=== PATIENT | male | born 1955 | race African-American/Black ===

== ENCOUNTER 2016-10-28 07:03 | Emergency (ER) | payer OTHER ==
[~2016-10-28] VITALS: Ht 185.4 cm; Wt 91.6 kg
[~2016-10-28 07:03] MED LIST: ACETAMINOPHEN-1 EAC1 ORAL; ACYCLOVIR800 MG ORAL; BACTRIM-DS1 EA PO; CEPHALEXIN500 MG PO; GABAPENTIN300 MG ORAL
--- NOTE | 2016-10-28 07:23 | Emergency Room Report ---
History of Present Illness General Chief Complaint: Neck Pain Source: Patient Present Illness HPI Patient presents with complaints of pain to the right mid neck area sharp shooting pain into the trapezius And into the right shoulder Patient has pain with movement Denies any fall or trauma denies any weakness in the arm Denies any headache Denies any chest pain or shortness of breath Pain is 6/10 He states that when he turns his head the pain worsens while trying to take off his jacket patient was grimacing Allergies: Coded Allergies: No Known Allergies (Unverified , 06/20/12) Patient History Past Medical History: see triage record Pertinent Family History: none Reviewed Nursing Documentation: PMH: Agreed, PSxH: Agreed Nursing Documentation-PMH Hx Hypertension: Yes Hx Neurological Problems: Yes - back surgery 02/2015 Review of Systems All Other Systems: negative except mentioned in HPI Physical Exam Vital Signs Date Time Temp Pulse Resp B/P Pulse Ox O2 Delivery O2 Flow Rate FiO2 10/28/16 07:06 98.4 78 16 159/94 97 Sp02 EP Interpretation: reviewed, normal General Appearance: well appearing, no apparent distress Head: normocephalic, atraumatic Eyes: bilateral eye EOMI, bilateral eye PERRL ENT: hearing grossly normal, normal pharynx, TMs + canals normal, uvula midline Neck: supple, no meningismus, no bony tend - Patient however has increased discomfort paraspinal C3-4-5 on the right side, tender on palpation, also tender on palpation of the trapezius Respiratory: lungs clear, normal breath sounds, no rhonchi, no respiratory distress, no retraction, no accessory muscle use Cardiovascular #1: normal peripheral pulses, regular rate, rhythm, no edema, no gallop, no JVD, no murmur Gastrointestinal: normal bowel sounds, non tender, soft, no mass, no organomegaly, non-distended, no guarding, no hernia, no pulsatile mass, no rebound Genitourinary: no CVA tenderness Musculoskeletal: normal inspection - Equal court commissioner bilaterally, no sensory deficit Neurologic: oriented x3, responsive, health promotion officer III-XII nml as tested, motor strength/ tone normal, sensory intact Psychiatric: mood/affect normal Skin: normal color, no rash, warm/dry, palpation normal Lymphatic: normal inspection, no adenopathy Medical Decision Making Diagnostic Impression: Primary Impression: Radiculopathy Additional Impression: Neck pain ER Course Patient's history and exam are in line with what appears to be clinically in line with radiculopathy Multiple differentials including but not limited to cardiac, neurological neurosurgical pathology were also entertained onset of symptoms has been over the past 7 days We did obtain initial x-rays Patient will require further outpatient evaluation and MRI for further input and diagnosis Patient was also provided a soft collar for symptomatic improvement At this time also provided with anti-inflammatories and will have close followup , Other X-Ray Diagnostic Results Other X-Ray Diagnostic Results : EP Interpretation: Yes Findings: no fractures, no dislocation, no soft tissue swelling, other - Osteophytic, arthritic changes Number of Views: 3 - C-spine Last Vital Signs Date Time Temp Pulse Resp B/P Pulse Ox O2 Delivery O2 Flow Rate FiO2 10/28/16 07:06 98.4 78 16 159/94 97 Status: improved Disposition: HOME, SELF-CARE Condition: Improved Scripts Hydrocodone Bit/Acetaminophen 5-325* (NORCO 5-325*) 1 Each Tablet 1 TAB ORAL Q12HR Y for For Pain, #10 TAB 0 Refills Prov: MARNI HEBERT D.O. 10/28/16 Ibuprofen* (MOTRIN*) 600 Mg Tablet 600 MG ORAL Q8H Y for For Pain, #20 TAB 0 Refills Prov: MARNI HEBERT D.O. 10/28/16 Referrals: NON PHYSICIAN (PCP) Additional Instructions: Patient is provided with the discharge instructions notified to follow up with primary doctor in the next 2-3 days otherwise return to the er with any worsening symptoms. MARNI HEBERT D.O. Oct 28, 2016 07:22
[2016-10-28] MEDS ORDERED: NORCO 5-325 TA1 EACH ORAL (07:26)
[2016-10-28] MEDS ORDERED: IBUPROFEN600 MG ORAL (07:26)
[2016-10-28] MEDS ORDERED: Ketorolac 60mg Inj IM ONE (07:30)
[2016-10-28] MEDS ORDERED: Norco 10mg/325mg tab ORAL ONE (07:30)
[2016-10-28 08:10] VITALS: BP 149/82
--- NOTE | 2016-10-28 10:42 | Diagnostic Imaging Report ---
Indication: PAIN, radiculopathy Technique: 3 views of the cervical spine Comparison: none Findings: Bony alignment is normal. No prevertebral soft tissue swelling. No acute fractures. No dislocations. There is degenerative disc narrowing at C5-6 and C6-7. Vertebral body heights are preserved. Impression: No acute process
== END 2016-10-28 08:10 | disposition home or self-care (01) ==
LOC: EMR 07:18
DX: M54.12 Radiculopathy, cervical region (principal)
CPT/HCPCS: 72040; 96372; 99284

== ENCOUNTER 2017-02-14 21:40 | Emergency (ER) | payer OTHER ==
[~2017-02-14] VITALS: Ht 185.4 cm; Wt 88.5 kg
[~2017-02-14 21:40] MED LIST changes: +IBUPROFEN600 MG ORAL; +NORCO 5-325 TA1 EACH ORAL
[2017-02-14] MEDS ORDERED: UNOBMED (21:45)
[2017-02-14 22:06] VITALS: BP 169/82
--- NOTE | 2017-02-14 22:11 | Emergency Room Report ---
History of Present Illness General Chief Complaint: Chest Pain Source: Patient Present Illness [facility] This is a 61-year-old male with a history of hypertension. Patient presents with 2 complaints. First is chest pain. This pain is epigastric area. His been on off for 2 days. No fever or chills. It radiates to his left arm. No nausea no vomiting. No diaphoresis. No shortness of breath. No exertional component. Second complaint is neck pain. Does been a chronic issue but worse the last few days. Pain is severe. Diffuse in nature. Said that his left arm felt numb with spasm. Worse with movement. Pain is 10 out of 10. Allergies: Coded Allergies: No Known Allergies (Unverified , 02/14/17) Patient History Past Medical History: see triage record, old chart reviewed, DM, HTN Past Surgical History: none Pertinent Family History: none Social History: Reports: smoking Immunizations: other Reviewed Nursing Documentation: PMH: Agreed, PSxH: Agreed Nursing Documentation-PMH Past Medical History: No History, Except For Hx Hypertension: Yes Hx Neurological Problems: Yes - back surgery 02/2015 Review of Systems Eye: Denies: blurred vision, eye pain ENT: Denies: ear pain, nose congestion, throat swelling Respiratory: Denies: cough, shortness of breath Cardiovascular: Reports: chest pain, Denies: palpitations Gastrointestinal: Denies: abdominal pain, diarrhea, nausea, vomiting Musculoskeletal: Denies: back pain, joint pain Skin: Denies: rash Neurological: Denies: headache, numbness Endocrine: Denies: increased thirst, increased urine Hematologic/Lymphatic: Denies: easy bruising All Other Systems: negative except mentioned in HPI Physical Exam Vital Signs Date Time Temp Pulse Resp B/P Pulse Ox O2 Delivery O2 Flow Rate FiO2 02/14/17 21:41 98.1 77 16 194/108 99 Room Air vitals with hypertension Sp02 EP Interpretation: reviewed, normal General Appearance: well appearing, no apparent distress, alert Head: normocephalic, atraumatic Eyes: bilateral eye EOMI, bilateral eye PERRL ENT: hearing grossly normal, normal pharynx Neck: no meningismus, tender - Diffuse tenderness. Worse with movement. Respiratory: chest non-tender, lungs clear, normal breath sounds Cardiovascular #1: regular rate, rhythm, no murmur Gastrointestinal: normal bowel sounds, non tender, no mass, no organomegaly, no bruit, non-distended Musculoskeletal: back normal, gait/station normal, normal range of motion Psychiatric: mood/affect normal Skin: warm/dry Medical Decision Making Diagnostic Impression: Primary Impression: Chest pain Qualified Codes: R07.9 - Chest pain, unspecified Additional Impressions: Cervical radiculopathy, acute Hypertension Qualified Codes: I10 - Essential (primary) hypertension ER Course Patient with chest pain. Little atypical in nature. He does have risk factor for CAD. Because of his risk factor, smoking history and new-onset chest pain, I wanted to transfer him for further workup. I actually discussed the case with Dr. Bejarano who accepted patient to [facility]. Patient said that he cannot stay in the hospital. He was to go home. I explained the wrist the patient. He is competent to make that decision to sign out AMA. I explained to the patient that he may have a serious cardiac condition and may drop . He said he will call his doctor tomorrow morning. Previous neck x-ray show degenerative changes of the cervical spine. This was done in October of this year. No evidence of cauda equina syndrome, spinal epidural abscess, or neoplastic process. Lab Results Impression labs unremarkable EKG Diagnostic Results Rate: normal Rhythm: NSR ST Segments: no acute changes Rhythm Strip Diag. Results EP Interpretation: yes Rate: 64 Rhythm: NSR, no PVC's, no ectopy Chest X-Ray Diagnostic Results EP Interpretation: Yes Findings: no consolidation, no effusion, no pneumothorax, no acute cardiopulmonary disease Number of Views: 1 Last Vital Signs Date Time Temp Pulse Resp B/P Pulse Ox O2 Delivery O2 Flow Rate FiO2 02/14/17 22:06 98.1 70 16 169/82 99 Room Air Status: improved Disposition: AGAINST MEDICAL ADVICE Condition: Stable Scripts Ibuprofen* (MOTRIN*) 600 Mg Tablet 600 MG ORAL Q8H Y for For Pain, #30 TAB 0 Refills Prov: TIGIST ESPINOZA M.D. 02/14/17 Hydrocodone/Acetaminophen 5-325* (HYDROCODONE/ACETAMINOPHEN 5-325*) 1 Each Tablet 1 TAB ORAL Q6H Y for For Pain, #30 TAB 0 Refills Prov: TIGIST ESPINOZA M.D. 02/14/17 Patient Instructions: Nonspecific Chest Pain Additional Instructions: You are leaving AGAINST MEDICAL ADVICE. You may have a serious heart condition. This may be life-threatening. Followup your Dr. tomorrow for recheck. You may need a stress test. Return if symptom worsen. TIGIST ESPINOZA M.D. February 14, 2017 22:11
[2017-02-14] MEDS ORDERED: Aspirin Baby 81mg ORAL ONE (22:15)
[2017-02-14] MEDS ORDERED: HYDROmorphone 1mg/ml Carpuject IVP ONE (22:15)
[2017-02-14 22:23] LABS: BASOPHILS % (AUTO) 1.2 % (0.0-2.0); EOSINOPHILS % (AUTO) 3.5 % (0.0-3.0); MEAN CORPUSCULAR HEMOGLOBIN 32.1 PG (27.0-31.0); MEAN CORPUSCULAR HGB CONC 35.1 G/DL (32.0-36.0); MEAN CORPUSCULAR VOLUME 91 FL (80-99); MEAN PLATELET VOLUME 8.8 FL (6.5-10.1); MONOCYTES % (AUTO) 2.5 % (1.0-10.0); NEUTROPHILS % (AUTO) 43.9 % (45.0-75.0); PLATELET COUNT 197 K/UL (150-450); RED BLOOD COUNT 4.26 M/UL (4.70-6.10); RED CELL DISTRIBUTION WIDTH 13.6 % (11.6-14.8); WHITE BLOOD COUNT 7.6 K/UL (4.8-10.8)
[2017-02-14 22:37] LABS: TROPONIN I < 0.30 ng/mL (<=0.30)
[2017-02-14 22:42] LABS: ALANINE AMINOTRANSFERASE 10 U/L (3-41); ALBUMIN/GLOBULIN RATIO 1.5 (1.0-2.7); ANION GAP 14 (5-15); ASPARTATE AMINO TRANSFERASE 18 U/L (5-40); CALCIUM 9.8 mg/dL (8.6-10.2); CARBON DIOXIDE 26 mEQ/L (20-30); CHLORIDE 104 mEQ/L (98-107); CREATININE 0.9 mg/dL (0.7-1.2); GLOMERULAR FILTRATION RATE > 60 mL/min (>60); HEMOLYSIS 6; POTASSIUM 3.7 mEQ/L (3.4-4.9); SODIUM 144 mEQ/L (135-145); TOTAL PROTEIN 7.8 g/dL (6.6-8.7)
[2017-02-14 22:48] LABS: APPEARANCE,URINE CLEAR; KETONES,URINE NEGATIVE (NEGATIVE); LEUKOCYTE ESTERASE ,URINE 1+ (NEGATIVE); NITRITE,URINE NEGATIVE (NEGATIVE); PH,URINE 5 (4.5-8.0); PROTEIN,URINE 1+ (NEGATIVE); UROBILINOGEN,URINE 1 MG/DL (0.0-1.0)
[2017-02-14 22:53] LABS: CKMB 5.2 ng/mL (< 6.7)
[2017-02-14 23:12] LABS: BACTERIA,URINE FEW /HPF; MUCUS,URINE FEW /LPF (NONE/OCC); RBC,URINE 0-2 /HPF (0 - 0); WBC,URINE 0-2 /HPF (0 - 0)
[2017-02-14 23:13] VITALS: BP 153/94
[2017-02-14] MEDS ORDERED: HYDROCODON-ACE1 EA15 ORAL (23:13)
[2017-02-14] MEDS ORDERED: IBUPROFEN600 MG ORAL (23:13)
[2017-02-14 23:18] VITALS: BP 153/94
--- NOTE | 2017-02-15 10:24 | Diagnostic Imaging Report ---
Indication: Chest pain Technique: One view of the chest Comparison: 06/20/2008 Findings: There are atelectatic changes at both lung bases. Lungs and pleural spaces otherwise clear. Heart size is normal. There is no significant interim change Impression: Bibasilar atelectasis. No acute process otherwise
--- NOTE | 2017-02-15 16:41 | Cardiology Report ---
APPROVED REPORT EKG Measurement Heart [id number] Normal sinus rhythm Septal infarct, age undetermined Abnormal ECG
== END 2017-02-14 23:18 | disposition left against medical advice (07) ==
LOC: EMR 22:18
DX: R07.9 Chest pain, unspecified (principal); M54.12 Radiculopathy, cervical region; I10 Essential (primary) hypertension; F17.200 Nicotine dependence, unspecified, uncomplicated; E11.9 Type 2 diabetes mellitus without complications
CPT/HCPCS: 36415; 71010; 80053; 80300; 81003; 82550; 82553; 84484; 85025; 93005; 96374; 96375; 99284; J1170; J2405